=== PATIENT | female | born 1970 | race Caucasian/White ===

== ENCOUNTER → 2023-12-31 16:22 | Outpatient (REF) | payer BC, SELFPAY | LOC: RAD 16:22 | PROVIDERS: ATTENDING PHYSICIAN Nurse Practitioner Family | DX: K59.00 Constipation, unspecified (principal) | CPT/HCPCS: 74018 ==

== ENCOUNTER 2024-10-05 06:27 | Day surgery (SDC) | payer BC, SELFPAY | END 2024-10-05 09:39 | disposition home or self-care (01) | LOC: GI 06:27 | PROVIDERS: ATTENDING PHYSICIAN Internal Medicine Gastroenterology | DX: Z12.11 Encounter for screening for malignant neoplasm of colon (principal); K64.8 Other hemorrhoids; K57.30 Diverticulosis of large intestine without perforation or abscess without bleeding; D12.2 Benign neoplasm of ascending colon; D12.4 Benign neoplasm of descending colon; Z86.0100 Personal history of colon polyps, unspecified; Z98.890 Other specified postprocedural states | CPT/HCPCS: 45385; 45380; 88305 ==